=== PATIENT | male | born 1985 | race Caucasian/White ===

== ENCOUNTER 2017-07-02 17:23 | Emergency (ER) | payer MEDICAID ==
[~2017-07-02] VITALS: Ht 177.8 cm; Wt 80.0 kg
[~2017-07-02 17:23] MED LIST: CYCL-120 PO
[2017-07-02 17:28] VITALS: BP 140/70
[2017-07-02] MEDS ORDERED: CEPH-572 PO (17:33)
[2017-07-02] MEDS ORDERED: SULF1TAB49 PO (17:33)
[2017-07-02] MEDS ORDERED: LIDOcaine 1.5% w/epinephrine 1:200,000 5ml ampul IJ ONE (17:35)
[2017-07-02] MEDS ORDERED: TETanus/Pertussis (Acell)/Diphther VAC/PF (Tdap-Adult) 0.5ml syringe IM ONE (18:10)
== END 2017-07-02 18:53 | disposition home or self-care (01) ==
LOC: ER 17:23
DX: L03.114 Cellulitis of left upper limb (principal); F17.200 Nicotine dependence, unspecified, uncomplicated; F15.10 Other stimulant abuse, uncomplicated
CPT/HCPCS: 90471; 90715; 99283; A6449; J3490

== ENCOUNTER 2018-02-17 15:53 | Emergency (ER) | payer MEDICAID ==
[~2018-02-17] VITALS: Ht 177.8 cm; Wt 86.4 kg
[2018-02-17 16:41] VITALS: BP 130/76
[2018-02-17 17:37] LABS: BASOPHILS # (AUTO) 0.2 X10'3 (0-0.2); BASOPHILS % (AUTO) 1.8 % (0-1); EOSINOPHILS # (AUTO) 0.4 X10'3 (0-0.9); EOSINOPHILS % (AUTO) 4.3 % (0-6); HEMATOCRIT 44.3 % (42.0-52.0); HEMOGLOBIN 14.8 g/dl (14.0-17.9); LYMPHOCYTES # (AUTO) 2.2 X10'3 (1.1-4.8); MEAN CORPUSCULAR HEMOGLOBIN 29.7 PG (27.0-31.0); MEAN CORPUSCULAR HGB CONC 33.4 % (33.0-36.5); MEAN CORPUSCULAR VOLUME 89.2 FL (78-98); MEAN PLATELET VOLUME 8.8 FL (7.4-10.4); MONOCYTES # (AUTO) 0.9 X10'3 (0-0.9); MONOCYTES % (AUTO) 8.9 % (2-12); NEUTROPHILS # (AUTO) 6.4 X10'3 (1.8-7.7); PLATELET COUNT 246 X10'3 (140-440); RED BLOOD COUNT 4.97 X10'6 (4.70-6.10); RED CELL DISTRIBUTION WIDTH 13.8 % (11.5-14.5); WHITE BLOOD COUNT 10.1 X10'3 (4.5-11.0)
[2018-02-17 17:52] LABS: ALANINE AMINOTRANSFERASE 37 U/L (12-78); ALBUMIN 3.9 G/DL (3.4-5.0); ALBUMIN/GLOBULIN RATIO 1.1 (1.1-1.5); ALKALINE PHOSPHATASE 74 IU/L (46-116); ANION GAP 8 (8-16); ASPARTATE AMINO TRANSFERASE 31 U/L (10-37); BILIRUBIN,TOTAL 0.4 MG/DL (0.1-1.0); BLOOD UREA NITROGEN 14 MG/DL (7-18); BUN/CREATININE RATIO 13.9 (5.4-32.0); CALCIUM 9.4 MG/DL (8.5-10.1); CHLORIDE 103 MMOL/L (99-107); CREATININE 1.01 MG/DL (0.60-1.10); GLUCOSE 82 MG/DL (70-104); POTASSIUM 4.3 MMOL/L (3.5-5.1); SODIUM 140 MMOL/L (135-145); TOTAL CARBON DIOXIDE 29.5 MMOL/L (24-32); TOTAL PROTEIN 7.6 G/DL (6.4-8.2); eGFR 87 ML/MIN
[2018-02-17 18:05] LABS: CLARITY,URINE TURBID (Clear); COLOR,URINE YELLOW (Yellow); GLUCOSE, URINE NEGATIVE (Neg); KETONES,URINE NEGATIVE (Neg); LEUKOCYTE ESTERASE ,URINE LARGE (Neg); NITRITES, URINE NEGATIVE (Neg); OCCULT BLOOD,URINE LARGE (Neg); PH,URINE 6.5 (4.8-8.0); PROTEIN,URINE 30 mg/dl (Neg); UROBILINOGEN,URINE 0.2 E.U/dL (0.2-1.0)
[2018-02-17 18:06] LABS: UA COLLECTION TYPE CLN CATCH MIDSTREAM
[2018-02-17 18:17] LABS: MUCUS STRANDS NONE SEEN /LPF (Neg); SQUAMOUS EPITHELIAL CELL,UR NONE SEEN /LPF (FEW); TRANSITIONAL EPI CELLS,URINE FEW /HPF
[2018-02-17 18:18] LABS: BACTERIA,URINE NONE SEEN /HPF (Neg); RBC,URINE TNTC /HPF (0-2); WBC,URINE TNTC /HPF (0-4)
[2018-02-17] MEDS ORDERED: CefTRIAXone 250MG inj IM ONE (19:45)
[2018-02-17] MEDS ORDERED: azithromycin 250mg tablet PO ONE (19:45)
[2018-02-17] MEDS ORDERED: CefTRIAXone 250MG IM Kit w/LIDOcaine IM ONE (19:55)
== END 2018-02-17 20:00 | disposition home or self-care (01) ==
LOC: ER 15:54
DX: N39.0 Urinary tract infection, site not specified (principal); R31.9 Hematuria, unspecified; F12.90 Cannabis use, unspecified, uncomplicated; F17.200 Nicotine dependence, unspecified, uncomplicated; Z91.048 Other nonmedicinal substance allergy status
CPT/HCPCS: 36415; 76870; 80053; 81001; 85025; 87088; 87491; 87591; 96372; 99285; J0696

== ENCOUNTER 2022-01-26 08:01 | Emergency (ER) | payer MEDICAID, OTHER | END 2022-01-26 09:07 | disposition left against medical advice (07) | LOC: ER 08:01 | DX: M25.519 Pain in unspecified shoulder (principal); Z53.21 Procedure and treatment not carried out due to patient leaving prior to being seen by health care provider ==

== ENCOUNTER 2024-07-27 11:40 | Emergency (ER) | payer MEDICAID ==
[~2024-07-27] VITALS: Ht 177.8 cm; Wt 79.3 kg
[2024-07-27] MEDS: ketorolac trometh 15mg/ml vial 15 MG/ML ML IM ONE (12:38)
[2024-07-27 12:42] VITALS: BP 134/86; PULSE 78; RESP 18; TEMP 97.7; O2SAT 98
== END 2024-07-27 12:44 | disposition home or self-care (01) ==
LOC: ER 11:41
DX: M25.512 Pain in left shoulder (principal)
CPT/HCPCS: 73030; 96372; 99283; J1885